=== PATIENT | male | born 1995 | race Caucasian/White ===

== ENCOUNTER → 2016-08-27 | Outpatient (CLI) | payer BC ==
--- NOTE | 2016-08-27 17:05 | XR ---
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 Paranasal sinuses are clear. Sella is unremarkabl e. IMPRESSION: 1. No radiopaque foreign body to contraindicate MRI.
== END | disposition home or self-care (01) ==
LOC: RADXRMAIN 16:35
PROVIDERS: ATTEND Orthopaedic Surgery
DX: Z09 Encounter for follow-up examination after completed treatment for conditions other than malignant neoplasm (principal); Z87.821 Personal history of retained foreign body fully removed
CPT/HCPCS: 70030

== ENCOUNTER → 2017-08-26 | Outpatient (CLI) | payer OTHER ==
--- NOTE | 2017-08-26 17:37 | XR ---
EXAMINATION TYPE: XR tibia fibula RT DATE OF EXAM: 08/26/2017 COMPARISON: NONE HISTORY: Pain TECHNIQUE: 2 views FINDINGS: There is some fragmentation of the tibial tubercle consistent with old osteochondrosis. I s ee no fracture nor dislocation. IMPRESSION: No acute abnormality of the right tibia and fibula.
--- NOTE | 2017-08-26 17:38 | XR ---
EXAMINATION TYPE: XR knee complete RT DATE OF EXAM: 08/26/2017 COMPARISON: NONE HISTORY: Pain TECHNIQUE: 3 views FINDINGS: I see no fracture nor dislocation. Joint spaces are fairly normal. There is no definite elma nt effusion. There is fragmentation of the tibial tubercle. IMPRESSION: Old osteochondrosis. No acute abnormality of the right knee.
== END | disposition home or self-care (01) ==
LOC: RADXRMAIN 17:09
PROVIDERS: ATTEND Emergency Medicine
DX: S83.91XA Sprain of unspecified site of right knee, initial encounter (principal)

== ENCOUNTER → 2017-09-03 | Outpatient (CLI) | payer OTHER ==
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
== END | disposition home or self-care (01) ==
LOC: RADMRIMAIN 13:54
PROVIDERS: ATTEND Emergency Medicine
DX: M92.51 Juvenile osteochondrosis of proximal tibia (principal); S83.91XD Sprain of unspecified site of right knee, subsequent encounter

== ENCOUNTER 2018-03-29 13:53 | Emergency (ER) | payer BC, OTHER ==
[2018-03-29 14:00] VITALS: RESP 18
[2018-03-29] MEDS ORDERED: SODIUM CHLORIDE 0.9% 1,000 ML IV ONE (14:18)
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
[2018-03-29 15:03] LABS: Basophils % (A) 0 %; Eosinophils # (A) 0.1 k/uL (0-0.7); Eosinophils % (A) 0 %; HCT 45.5 % (39.0-53.0); HGB 14.3 gm/dL (13.0-17.5); Lymphocytes # (A) 2.3 k/uL (1.0-4.8); Lymphocytes % (A) 15 %; MCH 26.7 pg (25.0-35.0); MCHC 31.4 g/dL (31.0-37.0); MCV 84.8 fL (80.0-100.0); Mean Platelet Volume 7.2; Monocytes # (A) 0.7 k/uL (0-1.0); Monocytes % (A) 5 %; Neutrophils # (A) 12.2 k/uL (1.3-7.7); Neutrophils % (A) 79 %; Platelet Count 310 k/uL (150-450); RBC 5.36 m/uL (4.30-5.90); RDW 14.2 % (11.5-15.5); WBC 15.3 k/uL (3.8-10.6)
[2018-03-29 15:04] LABS: Appearance,Urine Clear (Clear); Bilirubin,Urine Negative (Negative); Blood,Urine Negative (Negative); Color,Urine Yellow; Glucose,Urine (UA) Negative (Negative); Ketones,Urine Negative (Negative); Leukocyte Esterase,Urine Negative (Negative); Nitrite,Urine Negative (Negative); Protein,Urine Negative (Negative); Specific Gravity,Urine 1.016 (1.001-1.035); Urobilinogen,Urine <2.0 mg/dL (<2.0)
[2018-03-29 15:14] LABS: ALT 38 U/L (21-72); AST 22 U/L (17-59); Albumin 4.4 g/dL (3.5-5.0); Alkaline Phosphatase 67 U/L (38-126); Amylase 52 U/L (30-110); Anion Gap 12 mmol/L; Blood Urea Nitrogen 13 mg/dL (9-20); Calcium 9.7 mg/dL (8.4-10.2); Carbon Dioxide 26 mmol/L (22-30); Chloride 104 mmol/L (98-107); Glucose 105 mg/dL (74-99); Lipase 56 U/L (23-300); Potassium 4.4 mmol/L (3.5-5.1); Sodium 142 mmol/L (137-145); Total Bilirubin 0.5 mg/dL (0.2-1.3); Total Protein 7.4 g/dL (6.3-8.2)
[2018-03-29] MEDS ORDERED: FAMOTIDINE 20 MG TAB PO STA (15:18)
--- NOTE | 2018-03-29 15:19 | XR ---
EXAMINATION TYPE: XR KUB DATE OF EXAM: 03/29/2018 CLINICAL DATA: 22-year-old male with stomach pain and nausea for 2 days, PHH COMPARISON: None FINDINGS: Lung bases are clear. No evidence for free intraperitoneal air. No dilated small bowel or air-fluid levels. Scattered air and stool seen throughout the colon extendi ng distally into the rectum. Mild stool burden. No suspicious calcifications identified. IMPRESSION: No evidence of bowel obstruction or free intraperitoneal air.
--- NOTE | 2018-03-29 16:46 | US ---
EXAMINATION TYPE: US gallbladder DATE OF EXAM: 03/29/2018 COMPARISON: NONE CLINICAL HISTORY: 22-year-old male Pain. TECHNIQUE: Multiple sonographic images of the right upper quadrant are obtained. 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 Test technically difficult and limited Pancreas: Obscured by bowel gas Liver: Normal size at 14.3 cm but with increased attenuation, limited views due to overlying bowel ga s Gallbladder: appears wnl, however, limited evaluation due to overlying bowel gas Evidence for sonographic Milligan's sign: no CBD: wnl Right Kidney: Inferior pole obscured by overlying bowel gas . No hydronephrosis. IMPRESSION: 1. Technically difficult exam. Limitations as above. 2. Correlate for underlying hepatic steatosis. 3. No cholelithiasis or biliary ductal dilatation.
[2018-03-29 17:22] VITALS: BP 147/70; PULSE 88; TEMP 98.4
== END 2018-03-29 17:15 | disposition home or self-care (01) ==
LOC: EC 13:53
DX: R10.12 Left upper quadrant pain (principal); R11.10 Vomiting, unspecified
CPT/HCPCS: 36415; 74018; 76705; 80053; 81003; 82150; 83690; 85025; 93005; 96360; 99284

== ENCOUNTER → 2020-06-28 | Outpatient (CLI) | payer BC ==
--- NOTE | 2020-06-28 14:13 | XR ---
MR spine HISTORY: Chronic low back pain 3 views of the lumbar spine Lumbar vertebral bodies show preserved height, bone mineralization. There is a mild spinal curvature present. Disc spaces are maintained with exception of L5-S1 there is disc height loss however there i s partial sacralization of L5 on the right with some sclerotic density at the articulation of the tra nsverse process with the sacral ala mild likely some degenerative change. IMPRESSION: No fracture or subluxation. Additional findings above, slight spinal curvature.
== END | disposition home or self-care (01) ==
LOC: RADXRMAIN 10:49
PROVIDERS: ATTEND Family Medicine
DX: M51.87 Other intervertebral disc disorders, lumbosacral region (principal); M43.8X6 Other specified deforming dorsopathies, lumbar region; M43.27 Fusion of spine, lumbosacral region; M85.88 Other specified disorders of bone density and structure, other site
CPT/HCPCS: 72100

== ENCOUNTER 2020-10-15 21:57 | Emergency (ER) | payer BC ==
[2020-10-15 22:11] VITALS: BP 149/87; PULSE 113; RESP 18; TEMP 99.3
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
[2020-10-15 22:30] LABS: Basophils # (A) 0.1 k/uL (0-0.2); Basophils % (A) 1 %; Eosinophils # (A) 0.2 k/uL (0-0.7); Eosinophils % (A) 1 %; HCT 42.6 % (39.0-53.0); HGB 13.6 gm/dL (13.0-17.5); Lymphocytes # (A) 2.4 k/uL (1.0-4.8); Lymphocytes % (A) 14 %; MCH 27.5 pg (25.0-35.0); Mean Platelet Volume 7.5; Monocytes # (A) 0.9 k/uL (0-1.0); Monocytes % (A) 5 %; Neutrophils # (A) 14.4 k/uL (1.3-7.7); Neutrophils % (A) 79 %; Platelet Count 312 k/uL (150-450); RBC 4.96 m/uL (4.30-5.90); WBC 18.1 k/uL (3.8-10.6)
[2020-10-15 22:41] LABS: ALT 53 U/L (4-49); African American GFR (CKD) >90 (>60 ml/min/1.73 sqM); Albumin 4.3 g/dL (3.5-5.0); Alcohol <10 mg/dL; Anion Gap 13 mmol/L; Blood Urea Nitrogen 18 mg/dL (9-20); Calcium 9.2 mg/dL (8.4-10.2); Carbon Dioxide 21 mmol/L (22-30); Chloride 104 mmol/L (98-107); Glucose 118 mg/dL (74-99); INR 0.9 (<1.2); Non-African American GFR(CKD) >90 (>60 ml/min/1.73 sqM); Sodium 138 mmol/L (137-145); Total Bilirubin 0.6 mg/dL (0.2-1.3); Total Protein 7.8 g/dL (6.3-8.2)
[2020-10-15 22:47] LABS: AST 43 U/L (17-59); Alkaline Phosphatase 64 U/L (38-126)
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
[2020-10-15] MEDS ORDERED: IBUPROFEN 400 MG TAB PO STA (23:02)
[2020-10-15] MEDS ORDERED: ACET/COD 300 MG/30 MG STARTER PACK 6 TAB BTL PO STA (23:02)
[2020-10-15 23:51] LABS: Appearance,Urine Clear (Clear); Bilirubin,Urine Negative (Negative); Blood,Urine Negative (Negative); Color,Urine Yellow; Glucose,Urine (UA) Negative (Negative); Ketones,Urine 1+ (Negative); Leukocyte Esterase,Urine Negative (Negative); Nitrite,Urine Negative (Negative); PH, Urine 5.5 (5.0-8.0); Protein,Urine Trace (Negative); Specific Gravity,Urine 1.027 (1.001-1.035)
[2020-10-16 00:01] LABS: Amphetamine Screen,Urine Not Detected (NotDetected); Barbiturate Screen,Urine Not Detected (NotDetected); Benzodiazepines Screen,Urine Not Detected (NotDetected); Cocaine Screen,Urine Not Detected (NotDetected); Methadone Screen, Urine Not Detected (NotDetected); Opiate Screen,Urine Not Detected (NotDetected); Oxycodone Screen, Urine Not Detected (NotDetected); Phencyclidine Screen,Urine Not Detected (NotDetected); Tricyclic Antidepressant,Urine Not Detected (NotDetected); Urn Cannabinoid Scrn Not Detected (NotDetected)
== END 2020-10-16 00:30 | disposition home or self-care (01) ==
LOC: EC 21:57
DX: S99.912A Unspecified injury of left ankle, initial encounter (principal); S99.911A Unspecified injury of right ankle, initial encounter; F17.290 Nicotine dependence, other tobacco product, uncomplicated; Z88.5 Allergy status to narcotic agent; V86.92XA Unspecified occupant of snowmobile injured in nontraffic accident, initial encounter
CPT/HCPCS: 36415; 71045; 72170; 80053; 80306; 80320; 81003; 83605; 84484; 85025; 85610; 85730; 86850; 86900; 86901; 99283